=== PATIENT | male | born 1945 | race Caucasian/White ===

== ENCOUNTER 2016-03-26 10:32 | Day surgery (SDC) | payer MEDICARE, MEDICAID ==
[~2016-03-26] VITALS: Ht 175.3 cm; Wt 69.4 kg
[~2016-03-26 10:32] MED LIST: HIGH BLOOD PRESSURE
[2016-03-26 11:42] VITALS: Ht 175.3 cm; Wt 69.4 kg
[2016-03-26] MEDS ORDERED: POTASSIUM (11:48)
[2016-03-26] MEDS ORDERED: PROPOFOL 20 ML ONE (12:44)
[2016-03-26] MEDS ORDERED: FENTAnyl 50 MCG/ML VIAL ONE (12:44)
[2016-03-26] MEDS ORDERED: MIDAZOLAM 1 MG/ML 2 ML INJ ONE (12:44)
[2016-03-26 13:04] VITALS: BP 120/59; PULSE 78; RESP 18
--- NOTE | 2016-03-26 13:24 | GILP ---
DATE OF PROCEDURE: NAME OF PROCEDURE: Esophagogastroduodenoscopy and biopsy. SURGEON: Maddy Enriquez MD PREOPERATIVE DIAGNOSES: 1. Abdominal pain. 2. Weight loss. POSTOPERATIVE DIAGNOSES: 1. Hiatal hernia. 2. Gastroesophageal reflux disease. 3. Gastritis with erosions. 4. Gastric mucosal biopsies were taken for Helicobacter pylori test. 5. Severe duodenitis with erosions. INDICATION FOR THE PROCEDURE: Mr. Meek Marin is a 70-year-old female patient who had upper abdominal pain and weight loss. The patient was scheduled for endoscopic examination for further ev aluation. The procedure and possible complications were well explained to the patient, he understood and conse nted to the procedure. DESCRIPTION OF PROCEDURE: Under the influence of anesthesia, the gastroscope was carefully introduc ed into the esophagus and under direct vision, it was advanced to the stomach and through the pyloru s into the duodenal bulb and descending duodenum. FINDINGS: ESOPHAGUS: The patient had hiatal hernia and gastroesophageal reflux disease. STOMACH: He had gastritis with erosions. Gastric mucosal biopsies were taken for H. pylori test. DUODENUM: The patient had severe duodenitis with erosions. He tolerated the procedure very well and there was no complication from the procedure. At the end o f the procedure, he was awake with stable vital signs and he was discharged home to the care of his family. IMPRESSION: Please see postoperative diagnosis. PLAN: 1. Omeprazole 40 mg p.o. q.a.m. 2. Await H. pylori test report. Dictated By: MADDY RUSH/AKBAR Conf#: [id number] DID#: [id number]
[2016-03-26 13:40] VITALS: BP 157/68; PULSE 78; RESP 16
--- NOTE | 2016-03-26 17:00 | RADRPT ---
Vent Rate: 78 bpm RR Interval: 0 msec VA Interval: 176 msec QRS Duration: 110 msec QT Interval: 444 msec QTC Interval: 506 msec P-R-T [place]: 72 - 17 - 87 degrees Normal sinus rhythm Left ventricular hypertrophy with repolarization abnormality Prolonged QT Abnormal ECG Electronically Signed By: Felipe Degroot [id number]
--- NOTE | 2016-03-26 20:46 | CONS ---
DATE OF ADMISSION: 03/26/2016 DATE OF CONSULTATION: TYPE OF CONSULTATION: Preoperative gastroenterology. Dear Dr. Lorenzo: I thank you very much for this kind referral. HISTORY OF PRESENT ILLNESS: Mr. Parish Marin is a 70-year-old male patient who has been referred to me for further evaluation of upper abdominal discomfort associated with nausea and vomiting. There is no past history of peptic ulcer disease. He is not taking any nonsteroidal anti-inflammatory ag ents. His appetite has been poor, and he says that he has been losing weight. There is no history of gallstones. He does not have any fever, chills or jaundice. There is no history of liver diseas e. He denies any change in the bowel habit or rectal bleeding. There is no past history of colon n eoplasm. He is hypertensive. He is not a diabetic. He denies any history of heart disease or lung problem. The patient has chronic renal failure, and he is on dialysis. SOCIAL HISTORY: He is a nonsmoker. He does not abuse alcohol. FAMILY HISTORY: Negative for gastrointestinal tract neoplasm. PHYSICAL EXAMINATION: VITAL SIGNS: He is 5 feet 9 inches tall, and he weighs 156 pounds. HEART: Systolic murmur in the left sternal border. LUNGS: Clear. ABDOMEN: Soft without any distention. Liver and spleen are not palpable. There are no masses. Th ere is no focal tenderness. Normal bowel sounds are heard. CENTRAL NERVOUS SYSTEM: Examination does not reveal any focal neurological deficit. IMPRESSION: 1. Upper abdominal pain associated with nausea. 2. The patient also gives history of vomiting. 3. Weight loss. 4. Hypertension. 5. Chronic renal failure. 6. The patient is on dialysis. PLAN: 1. Omeprazole 40 mg p.o. q.a.m. 2. Endoscopic examination for further evaluation. 3. Because of the patient's age and multiple medical problems, he needs monitored anesthesia care. The procedure and possible complications are well explained to the patient and the family. They und erstand and consent to the procedure. I thank you once again. With warmest personal regards, Dictated By: MADDY RUSH/AKBAR Conf#: [id number] DID#: [id number]
== END 2016-03-26 15:45 | disposition home or self-care (01) ==
LOC: GIL 10:32
PROVIDERS: ATTEND Internal Medicine Gastroenterology
DX: K44.9 Diaphragmatic hernia without obstruction or gangrene (principal); K21.9 Gastro-esophageal reflux disease without esophagitis; K29.80 Duodenitis without bleeding; K29.60 Other gastritis without bleeding; I12.0 Hypertensive chronic kidney disease with stage 5 chronic kidney disease or end stage renal disease; N18.6 End stage renal disease; Z99.2 Dependence on renal dialysis
CPT/HCPCS: 43239; 84132; 87081; 93005; J2250; J3010